=== PATIENT | female | born 1990 | race Caucasian/White ===

== ENCOUNTER 2019-04-25 11:42 | Emergency (ER) | payer OTHER ==
[2019-04-25 12:11] VITALS: BP 172/100; PULSE 65; TEMP 98.2; BMI 50.4
--- NOTE | 2019-04-25 12:33 | PDOC ---
History of Present Illness - General Chief Complaint: Pain Stated Complaint: PELVIC PAIN Time Seen by Provider: 04/25/19 12:33 History Source: Patient Exam Limitations: No Limitations - History of Present Illness Initial Comments: 04/25/19 12:45 Mikel Atkinson is a 28F with PMH obesity getting evaluated for bariatric surgery, NIDDM on metformin, presenting with R lower abdominal pain for the last 4-5 days. Patient reports her menstrual period was due on 04/10/19, but did not some on schedule. On 04/19/19 started having some mild spotting without any pain only present when wiping after urinating. Denies any blood in urine or in stool. Since then, has been having mild spotting and brown discharge, painless, no significant bleeding. Has also noticed some RLQ abdominal pain that is constant , non-positional, unrelated to meals, can get up to 8-10/10 at night but is a 4/ 10 now. Denies any burning or pain with urination. Saw PMD yesterday and test negative, referred to OBGYN who does not have any appointments available, recommended ER visit for evaluation of ovaries. No prior ovarian problems, has had chlamydia 2x last in 2014 treated with Abx and no residual problems. Never been . Last sexual activity 04/03, known partner, low suspicion of STD. Periods regular and normal. No abdominal surgeries. Has seen optho, GI, surgery, [facility], etc. for bariatric surgery planning, has good MD f/u. Past History - Past Medical History Allergies/Adverse Reactions: Allergies Allergy/AdvReac Type Severity Reaction Status Date / Time No Known Allergies Allergy Verified 04/25/19 12:07 Home Medications: Ambulatory Orders Chlorhexidine Gluconate [Peridex] 15 ml MM BID #500 ml 02/07/13 No Home Medications 0 dose .ROUTE UTDICT 02/07/13 - Psycho Social/Smoking Cessation Hx Smoking Status: No Smoking History: Never smoked Number of Cigarettes Smoked Daily: 0 Hx Alcohol Use: No Drug/Substance Use Hx: No Review of Systems - Review of Systems Able to Perform ROS?: Yes Constitutional: No: Chills, Fever, Weakness HEENTM: No: Symptoms Reported Respiratory: No: Cough, Shortness of Breath, Wheezing, Hemoptysis Cardiac (ROS): No: Chest Pain, Edema, Lightheadedness, Palpitations, Syncope ABD/GI: Yes: Other (abdominal pain). No: Diarrhea, Nausea, Poor Appetite, Poor Fluid Intake, Vomiting : No: Burning, Dysuria, Discharge, Hematuria Musculoskeletal: No: Symptoms Reported Integumentary: No: Symptoms Reported Neurological: No: Symptoms reported Endocrine: No: Symptoms Reported Hematologic/Lymphatic: No: Symptoms Reported All Other Systems: Reviewed and Negative *Physical Exam - Vital Signs Last Vital Signs Temp Pulse Resp BP Pulse Ox 98.2 F 65 16 172/100 H 99 04/25/19 12:07 04/25/19 12:07 04/25/19 12:07 04/25/19 12:07 04/25/19 12:07 - Physical Exam General Appearance: Yes: Nourished, Appropriately Dressed, Obese. No: Apparent Distress HEENT: positive: EOMI, KIMBERLEY, Normal Voice, Pharynx Normal, Hearing Grossly Normal. negative: Scleral Icterus (R), Scleral Icterus (L), Pharyngeal Erythema , Tonsillar Exudate, Tonsillar Erythema Neck: positive: Trachea midline, Normal Thyroid, Supple. negative: Tender, Rigid, Lymphadenopathy (R), Lymphadenopathy (L), Tender lateral, Tender midline Respiratory/Chest: positive: Lungs Clear, Normal Breath Sounds. negative: Chest Tender, Respiratory Distress, Accessory Muscle Use, Crackles, Rales, Rhonchi, Stridor, Wheezing, Hyperresonant Cardiovascular: positive: Regular Rhythm, Regular Rate. negative: Edema, Murmur Female Pelvic Exam: positive: normal external exam, cervical os closed, normal adnexa. negative: CMT, discharge, vaginal bleeding Gastrointestinal/Abdominal: positive: Normal Bowel Sounds, Tender (RLQ), Soft, Protuberent, Other (Large pannus). negative: Organomegaly, Pulsatile Mass, Hernia Musculoskeletal: positive: Normal Inspection. negative: CVA Tenderness, Decreased Range of Motion, Vertebral Tenderness Extremity: positive: Normal Capillary Refill, Normal Inspection, Normal Range of Motion, Pelvis Stable. negative: Tender, Pedal Edema, Swelling Integumentary: positive: Normal Color, Dry, Warm Neurologic: positive: paper machine back tender II-XII NML intact, Fully Oriented, Alert, Normal Mood/ Affect, Normal Response, Motor Strength 08/04 ED Treatment Course - LABORATORY CBC & Chemistry Diagram: 04/25/19 14:54 04/25/19 14:54 - RADIOLOGY Radiograph Interpretation: EXAM#: TYPE/EXAM: RESULT: [id number] US/TRANSVAGINAL ULTRASOUND US Right lower quadrant pain. Rule out ovarian cyst IMPRESSION: Intrauterine gestational saclike structure compatible with 5 weeks of gestation. No pole is identified. Correlation with serial quantitative serum beta hCG level and close follow-up pelvis ultrasound is needed for further evaluation. Simple cyst/dominant follicle in the right ovary measuring 1.1 cm. Normal vascular flow in both ovaries. Reported By: Jose De Leon MD 04/25/19 [id number] Medical Decision Making - Medical Decision Making 04/25/19 14:38 Patient presents with RLQ pain with vaginal spotting and late menses. Has had negative test at PMD yesterday, has OBGYN follow-up next month and sees multiple other doctors for gastric bypass planning. Concerned for complication vs. R ovarian pathology such as cyst vs. appendicitis. Patient has no GI symptoms and complains of mild RLQ pain, no history of ovarian cysts. Pelvic exam normal, no bleeding/discharge, os closed and normal, no CMT or adnexal tenderness. Appendicitis also on differential given RLQ pain, no other abdominal surgeries. - UA/Upreg for eval UTI and - CBC/CMP for eval lytes/infection - TVUS for eval ovaries 04/25/19 14:51 US called regarding finding of gestational sac without visible pole consistent with 5 weeks . Ordering TS and Beta quant for spotting in 1st trimester. 04/25/19 16:56 Labs notable for: - CMP WNL - CBC WNL - Beta quant negative despite gestational sac seen on US Unclear what to make of discordance between beta hCG and US findings. Confirmed blood was patient's. Getting confirmatory UPreg. 04/25/19 17:14 Discussed with patient blood results and US results and the importance of seeing her OBGYN next Sunday. Patient verbalizes understanding. Patient refuses to wait for UA results. Will get UA/UPREG and call if UTI or positive. Regardless, has visualized possible on US, will need to f/u with OBGYN regardless, and precautions given. 04/25/19 21:20 UA found to be negative for UTI, negative for . No Abx script needed. Upreg consistent with blood labs. Discharge - Discharge Information Problems reviewed: Yes Clinical Impression/Diagnosis: Qualifiers: Weeks of gestation: less than 8 weeks Qualified Code(s): Z3A.01 - Less than 8 weeks gestation of Condition: Stable Disposition: HOME - Admission No - Follow up/Referral Referrals: Jose Slater MD [Primary Care Provider] - Luis Antonio Baltazar MD [Staff Physician] - - Patient Discharge Instructions Patient Printed Discharge Instructions: DI for Vaginal Bleeding During Additional Instructions: Today you were evaluated for abdominal pain. We obtained an ultrasound of your ovaries and uterus that show no ovarian problems, but you have evidence of a in your uterus, and your spotting is likely either a normal part of in the first trimester or some sort of infection. Your blood test does not show , which does not agree with our ultrasound findings. You need to follow-up with an OBGYN for further care in the next 2 days to further evaluate your to see if it is a real finding, especially in the context of your bariatric procedures coming up. Your other blood labs are normal. If you experience any worsening abdominal pain, bleeding, chest pain, SOB, or any other new or concerning symptoms, please return to the ED. - Post Discharge Activity
--- NOTE | 2019-04-25 14:36 | PDOC ---
Documentation entered by Dotty Ricardo SCRIBE, acting as scribe for Efraín Crawley MD. Efraín Crawley MD: This documentation has been prepared by the Haleigh madsen Adrianna, SCRIBE, under my direction and personally reviewed by me in its entirety. I confirm that the documentation accurately reflects all work, treatment, procedures, and medical decision making performed by me. Attending Attestation - Resident Resident Name: Vick Virgen - ED Attending Attestation I have performed the following: I have examined & evaluated the patient, The case was reviewed & discussed with the resident, I agree w/resident's findings & plan, Exceptions are as noted - HPI HPI: The patient is a 28 year old female, with a significant PMH obesity and NIDDM, who presents to the ED for evaluation of abdominal pain for 5 days. Patient complains of RLQ abdominal pain, with some vaginal spotting after wiping when urinating. Patient saw her PCP yesterday, u-preg was torres martinez, and was given OBGYN f/u (no appointments, so advised to come to the ED for evaluation of ovaries). Allergies: NKA, NKDA Surgical History: None reported Social History: Denies EtOH, tobacco, or illicit drug use PCP: Dr. Slater - Physicial Exam PE: Vitals: Triage vital signs reviewed General Appearance: No acute distress, well nourished, well developed Cardiac: Regular rate and rhythm, no murmurs, no rubs, no gallops Lungs: Clear to auscultation bilateral, good air movement bilaterally Abdomen: +Mild RLQ tenderness to palpation. Soft, nondistended, normal bowel sounds. Genitourinary: See resident exam Extremities: Full range of motion to all extremities, no cyanosis, clubbing, or edema Skin: Warm and dry, no rashes or lesions, no rash, no petechiae Neuro: AOX3; Cranial Nerves 2-12 grossly intact, Strength intact to all extremities, Sensation intact to all extremities. Psych: Normal mood, normal affect - Medical Decision Making 04/25/19 15:18 Very mild right lower quadrant pain on exam not reproducible on abdominal exam no significant pelvic discomfort on pelvic exam will ultrasound labs observe and reassess 04/25/19 16:23 Labs ultrasound report pending Dr. Rodriguez to follow-up results and reassess.
[2019-04-25 15:33] LABS: BASO % 0.9 % (0-2.0); EOS % 1.1 % (0-4.5); HEMATOCRIT 40.3 % (32.4-45.2); HEMOGLOBIN 13.1 GM/dL (10.7-15.3); LYMPH % 18.1 % (8-40); MCH 26.2 pg (25.7-33.7); MCHC 32.6 g/dl (32.0-36.0); MEAN CELL VOLUME 80.5 fl (80-96); MEAN PLT VOLUME 7.6 fl (7.5-11.1); MONO % 6.8 % (3.8-10.2); NEUT % 73.1 % (42.8-82.8); PLATELET COUNT 364 K/MM3 (134-434); RBC 5.01 M/mm3 (3.60-5.2); RDW 15.6 % (11.6-15.6); WHITE BLOOD COUNT 10.6 K/mm3 (4.0-10.0)
[2019-04-25 15:58] LABS: ALBUMIN 3.6 g/dl (3.4-5.0); BILIRUBIN,TOTAL 0.4 mg/dL (0.2-1); BLOOD UREA NITROGEN 15.3 mg/dL (7-18); CALCIUM 9.6 mg/dL (8.5-10.1); POTASSIUM 4.1 mmol/L (3.5-5.1)
[2019-04-25 18:20] LABS: URINE APPEARANCE CLEAR; URINE BILIRUBIN NEGATIVE (NEGATIVE); URINE COLOR YELLOW; URINE GLUCOSE (UA) NEGATIVE (NEGATIVE); URINE KETONE TRACE (NEGATIVE); URINE LEUK ESTERASE NEGATIVE (NEGATIVE); URINE NITRITE NEGATIVE (NEGATIVE); URINE PROTEIN NEGATIVE (NEGATIVE); URINE UROBILINOGEN 0.2 mg/dL (0.2-1.0)
== END 2019-04-25 17:27 | disposition home or self-care (01) ==
LOC: JER 11:42
DX: Z3A.01 Less than 8 weeks gestation of pregnancy (principal)
CPT/HCPCS: 36415; 76830-TC; 80053; 81003; 84702; 84703; 85025; 86850; 86900; 86901; 87491; 87591; 99282-25

== ENCOUNTER 2023-03-27 00:20 | Inpatient (IN) | payer OTHER ==
[2023-03-27] MEDS ORDERED: AMPICILLIN - 2 GM in SODIUM CHLORIDE 100 ML IVPB ONE (01:00)
[2023-03-27] MEDS ORDERED: ELECTROLYTE-148 SOLN 1,000 ML IV SCH (01:05)
[2023-03-27] MEDS ORDERED: AMPICILLIN SODIUM 2 GM VIAL ONE (01:33)
[2023-03-27 02:05] VITALS: BMI 44.6
[2023-03-27 02:06] LABS: BASO % 0.3 % (0-2.0); EOS % 0.2 % (0-4.5); HEMATOCRIT 25.8 % (32.4-45.2); HEMOGLOBIN 8.3 GM/dL (10.7-15.3); LYMPH % 7.2 % (8-40); MCH 20.5 pg (25.7-33.7); MCHC 32.2 g/dl (32.0-36.0); MEAN CELL VOLUME 63.8 fl (80-96); MEAN PLT VOLUME 7.7 fl (7.5-11.1); MONO % 8.8 % (3.8-10.2); NEUT % 83.5 % (42.8-82.8); PLATELET COUNT 349 10^3/uL (134-434); RBC 4.05 M/mm3 (3.60-5.2); RDW 18.4 % (11.6-15.6); WHITE BLOOD COUNT 16.9 K/mm3 (4.0-10.0)
[2023-03-27 02:13] LABS: INR 0.95 (0.83-1.09)
[2023-03-27 02:16] LABS: ACTIVATED PTT 26.2 SECONDS (25.2-36.5)
[2023-03-27] MEDS ORDERED: NALOXONE HCL 0.4 MG/ML VIAL IVPUSH PRN (02:25)
[2023-03-27] MEDS ORDERED: FENTANYL/BUPIVACAINE/NS/PF - PCEA - 50 ML DISP.SYRIN EP ONE (02:27)
[2023-03-27] MEDS ORDERED: FENTANYL/BUPIVACAINE/NS/PF - PCEA - 50 ML DISP.SYRIN EP SCH (02:30)
[2023-03-27] MEDS ORDERED: BUPIVACAINE HCL/PF 0.25% (2.5MG/ML) 10 ML VIAL ONE (02:30)
[2023-03-27] MEDS ORDERED: FENTANYL CITRATE/PF 50 MCG/ML VIAL ONE ×2 (02:30→04:23)
[2023-03-27] MEDS ORDERED: LIDO 2%/EPI 1:200000 PRESRVFRE (20 ML SDVIAL) ONE (02:31)
[2023-03-27 02:39] LABS: CALCIUM 9.2 mg/dL (8.5-10.1)
[2023-03-27 02:40] LABS: BLOOD UREA NITROGEN 9.8 mg/dL (7-18)
[2023-03-27 02:43] LABS: CREATININE 0.7 mg/dL (0.55-1.3)
[2023-03-27 03:33] LABS: HIV INTERPRETATION NEGATIVE (NEGATIVE)
[2023-03-27] MEDS ORDERED: OXYTOCIN 30 UNITS in 0.9% NS 30 UNIT/500 ML INFUS.BAG IVPB ONE (04:21)
[2023-03-27] MEDS ORDERED: ceFAZolin SODIUM 1 GM VIAL ONE ×3 (04:25)
[2023-03-27] MEDS ORDERED: ONDANSETRON 4 MG/2 ML VIAL IVPUSH PRN (04:31)
[2023-03-27] MEDS ORDERED: ACETAMINOPHEN 325 MG TABLET (FP) PO PRN (04:31)
[2023-03-27] MEDS ORDERED: OXYTOCIN 20 UNITS in 0.9% NS 20 UNIT/1,000 ML INFUS.BAG IV ONE (04:36)
[2023-03-27 04:37] LABS: ANISOCYTOSIS 2+; MACROCYTOSIS 0; OVALOCYTE 2+; TARGET CELLS 2+; TEAR DROP CELLS 2+
[2023-03-27] MEDS ORDERED: METHYLERGONOVINE MALEATE 0.2 MG/1 ML AMP IM PRN (04:45)
[2023-03-27] MEDS ORDERED: BENZOCAINE 20% 57 GM BOTTLE TP PRN (04:45)
[2023-03-27] MEDS ORDERED: WITCH HAZEL 50% (TUCKS) 40 PAD/JAR PAD TP PRN (04:45)
[2023-03-27] MEDS ORDERED: morphine SULFATE/PF 1 MG/2 ML (2cc Syringe - QUVA) ONE (05:07)
[2023-03-27] MEDS: OXYTOCIN 20 UNITS in 0.9% NS 20 UNIT/1,000 ML INFUS.BAG IV SCH ×2 (06:30→18:02)
[2023-03-27 07:32] LABS: CORD BASE EXCESS -18.5 mmol/L (0-2); CORD HCO3 13.5 mmHg (20-29); CORD PCO2 60.8 mmHg (30-78)
[2023-03-27 07:33] LABS: CORD BASE EXCESS -19.4 mmol/L (0-2); CORD HCO3 12.9 mmHg (20-29)
[2023-03-27 07:36] LABS: CORD pH 6.964 (7.14-7.44); CORD pH 6.966 (7.14-7.44)
[2023-03-27] MEDS: IBUPROFEN 800 MG/8 ML IJ IVPB PRN ×2 (09:16→21:44)
[2023-03-27] MEDS: AMPICILLIN - 1 GM in SODIUM CHLORIDE 100 ML IVPB SCH ×2 (09:16→09:21)
[2023-03-27] MEDS: PRENATAL VITAMINS W/ FOLIC ACID TABLET (FP) PO SCH (10:00)
[2023-03-27] MEDS ORDERED: FERROUS SO4 325 MG TABLET (FP) PO SCH (10:00)
[2023-03-27] MEDS ORDERED: DIPHTH,PERTUSS(ACELL),TET 0.5 ML DISP.SYRIN IM ONE (12:00)
[2023-03-27] MEDS ORDERED: oxyCODONE HCL 5 MG TABLET PO PRN ×2 (16:45)
[2023-03-27] MEDS: CEFAZOLIN SODIUM 2 GM in DEXTROSE 5%-WATER 100 ML IVPB SCH (18:01)
[2023-03-28] MEDS: CEFAZOLIN SODIUM 2 GM in DEXTROSE 5%-WATER 100 ML IVPB SCH ×2 (01:53→09:18)
[2023-03-28] MEDS: ACETAMINOPHEN 325 MG TABLET (FP) PO PRN ×2 (03:27→11:34)
[2023-03-28] MEDS ORDERED: BISACODYL 10 MG SUPP.RECT RC PRN (04:45)
[2023-03-28] MEDS: OXYTOCIN 20 UNITS in 0.9% NS 20 UNIT/1,000 ML INFUS.BAG IV SCH (04:52)
[2023-03-28 07:59] LABS: BASO % 0.3 % (0-2.0); EOS % 0.3 % (0-4.5); HEMATOCRIT 21.1 % (32.4-45.2); LYMPH % 8.2 % (8-40); MCHC 30.4 g/dl (32.0-36.0); MEAN CELL VOLUME 64.6 fl (80-96); MEAN PLT VOLUME 7.4 fl (7.5-11.1); MONO % 7.5 % (3.8-10.2); NEUT % 83.7 % (42.8-82.8); PLATELET COUNT 274 10^3/uL (134-434); RBC 3.27 M/mm3 (3.60-5.2); RDW 18.3 % (11.6-15.6); WHITE BLOOD COUNT 18.9 K/mm3 (4.0-10.0)
[2023-03-28 08:01] LABS: MCH 19.6 pg (25.7-33.7)
[2023-03-28 08:05] LABS: HEMOGLOBIN 6.4 GM/dL (10.7-15.3)
[2023-03-28] MEDS: PRENATAL VITAMINS W/ FOLIC ACID TABLET (FP) PO SCH (09:17)
[2023-03-28] MEDS: FERROUS SO4 325 MG TABLET (FP) PO SCH ×2 (09:17→17:00)
[2023-03-28] MEDS: IBUPROFEN 600 MG TABLET (FP) PO PRN ×3 (09:17→23:58)
[2023-03-28] MEDS ORDERED: DIPHTH,PERTUSS(ACELL),TET 0.5 ML DISP.SYRIN IM ONE (10:00)
[2023-03-28] MEDS: SIMETHICONE 80 MG TAB.CHEW (FP) PO PRN ×2 (13:30→21:53)
[2023-03-29] MEDS: IBUPROFEN 600 MG TABLET (FP) PO PRN (06:19)
[2023-03-29] MEDS: SIMETHICONE 80 MG TAB.CHEW (FP) PO PRN ×2 (06:19→09:36)
[2023-03-29 07:36] LABS: HEMATOCRIT 25.7 % (32.4-45.2); HEMOGLOBIN 8.1 GM/dL (10.7-15.3); MCH 21.1 pg (25.7-33.7); MCHC 31.5 g/dl (32.0-36.0); MEAN PLT VOLUME 7.2 fl (7.5-11.1); PLATELET COUNT 327 10^3/uL (134-434); RBC 3.83 M/mm3 (3.60-5.2); RDW 20.5 % (11.6-15.6); WHITE BLOOD COUNT 19.1 K/mm3 (4.0-10.0)
[2023-03-29] MEDS: FERROUS SO4 325 MG TABLET (FP) PO SCH (09:35)
[2023-03-29] MEDS: PRENATAL VITAMINS W/ FOLIC ACID TABLET (FP) PO SCH (09:38)
[2023-03-29 11:17] VITALS: BP 135/79; PULSE 77; RESP 16; TEMP 98.3
== END 2023-03-29 13:15 | disposition home or self-care (01) | DRG 540 ==
LOC: JDEL 00:20 → JLDR 00:21 → J3W 08:30
PROVIDERS: ADMIT Obstetrics & Gynecology; ATTEND Obstetrics & Gynecology
PROC: 10D00Z1 Extraction of Products of Conception, Low, Open Approach (ICD-10-PCS; principal; 2023-03-27)
PROC: 30233N1 Transfusion of Nonautologous Red Blood Cells into Peripheral Vein, Percutaneous Approach (ICD-10-PCS; 2023-03-28)
DX: O76 Abnormality in fetal heart rate and rhythm complicating labor and delivery (principal); O62.1 Secondary uterine inertia; O41.93X0 Disorder of amniotic fluid and membranes, unspecified, third trimester, not applicable or unspecified; D64.9 Anemia, unspecified; O99.02 Anemia complicating childbirth; O99.03 Anemia complicating the puerperium; Z3A.37 37 weeks gestation of pregnancy; Z37.0 Single live birth
CPT/HCPCS: 36415; 36430; 36600; 80048; 82803; 85025; 85027; 85461; 85610; 85730; 86780; 86850; 86900; 86901; 86922; 87389; 90715; 96372; J2790; P9058